=== PATIENT | male | born 1960 | race Caucasian/White ===

== ENCOUNTER 2021-02-28 18:57 | Emergency (ER) | payer OTHER ==
[~2021-02-28] VITALS: Ht 180.3 cm; Wt 97.5 kg
[2021-02-28] MEDS ORDERED: AVAPRO300 MG (19:57)
[2021-02-28] MEDS ORDERED: DICLOFENAC SODI75 MG PO (20:31)
== END 2021-02-28 21:56 | disposition home or self-care (01) ==
LOC: ER 18:57
DX: M54.50 Low back pain, unspecified (principal); M25.562 Pain in left knee